=== PATIENT | female | born 1940 | race Caucasian/White ===

== ENCOUNTER → 2019-09-30 | Outpatient (CLI) | payer MEDICARE, OTHER ==
--- NOTE | 2019-09-30 12:53 | KCIC ---
MRI of the lumbar spine without contrast 09/30/2019 CLINICAL HISTORY: Low back pain which radiates down the right leg TECHNIQUE: Unenhanced T1-weighted and T2-weighted sagittal and axial and inversion recovery sagittal images of the lumbar spine were obtained. FINDINGS: Very mild S-shaped curvature of the thoracolumbar spine is seen. Mild to moderate anterolisthesis of L4 in relation to L5 is noted. Degenerative signal changes are seen involving all of the disks of the lumbar spine. Degenerative signal changes are seen within the marrow surrounding these discs. The conus medullaris is within normal limits in morphology, position, and signal characteristics. At the L1-2 disc space there is a mild generalized disc bulge which is eccentric to the left. Degenerative changes are seen involving the facet joints bilaterally. There is moderate ligament flavum hypertrophy bilaterally. There are small facet joint effusions bilaterally. These findings do not result in significant central spinal canal or neural foraminal stenosis. At the L2-3 disc space there is a mild to moderate generalized disc bulge. This is eccentric to the right. Superimposed on this disc bulge is a right paracentral/lateral focal disc protrusion. This measures 4 mm in AP diameter. Degenerative changes are seen involving the facet joints bilaterally. There is moderate ligamentum flavum hypertrophy bilaterally. Small facet joint effusions are seen bilaterally. There is prominence of the posterior epidural fat. These findings when combined result in mild right greater than left central spinal canal stenosis. Mild right neural foraminal stenosis is seen. The left neural foramen is patent. At the L3-4 disc space there is a mild to moderate generalized disc bulge. Degenerative changes are seen involving the facet joints bilaterally. There is moderate ligamentum flavum hypertrophy bilaterally. Small facet joint effusions are seen bilaterally. There is prominence of the posterior epidural fat. These findings when combined result in mild central spinal canal stenosis. No neural foraminal stenosis is seen. At the L4-5 disc space there is a moderate generalized disc bulge. This is eccentric to the right. Degenerative changes are seen involving the facet joints bilaterally. There is moderate ligamentum flavum hypertrophy bilaterally. These findings when combined result in mild to moderate central spinal canal stenosis. Mild to moderate right greater than left neural foraminal stenosis is seen. At the L5-S1 disc space there is a mild generalized disc bulge. This is eccentric to the right. Degenerative changes are seen involving the facet joints bilaterally. There is mild to moderate ligamentum flavum hypertrophy bilaterally. There are small facet joint effusions. These findings when combined do not result in significant central spinal canal or neural foraminal stenosis. IMPRESSION: The changes of degenerative disc disease are seen involving the lumbar spine. These findings result in mild right greater than left central spinal canal stenosis at L2-3, mild central spinal canal stenosis at L3-4, and mild to moderate central spinal canal stenosis at L4-5. Mild right neural foraminal stenosis is seen at L2-3. Mild to moderate right greater than left neural foraminal stenosis is seen at L4-5. Electronically signed by: Dane Leonardo MD (09/30/2019 12:50 PM) [id number]
== END ==
LOC: KCIC MRI 11:45
PROVIDERS: ATTEND Family Medicine
DX: M51.16 Intervertebral disc disorders with radiculopathy, lumbar region (principal); M48.061 Spinal stenosis, lumbar region without neurogenic claudication; M25.48 Effusion, other site
CPT/HCPCS: 72148